=== PATIENT | male | born 1990 | race Asian ===

== ENCOUNTER 2020-04-10 09:30 | Outpatient (REF) | payer SELFPAY ==
[2020-04-11 12:33] LABS: CT PCR NOT DETECTED (Not Detect.); NG PCR NOT DETECTED (Not Detect.)
== END 2020-04-10 09:31 | disposition home or self-care (01) ==
LOC: HO.LAB 09:30
PROVIDERS: Visit Provider Internal Medicine
DX: Z11.3 Encounter for screening for infections with a predominantly sexual mode of transmission (principal)
CPT/HCPCS: 87491; 87591